=== PATIENT | female | born 1935 | race Caucasian/White ===

== ENCOUNTER → 2018-01-08 | Outpatient (CLI) | payer OTHER ==
[~2018-01-08] MED LIST: TIMO5DRO5 EACHEYE
== END | disposition home or self-care (01) ==
LOC: CFH 08:00
PROVIDERS: ATTEND Internal Medicine
DX: C50.912 Malignant neoplasm of unspecified site of left female breast (principal); N63.21 Unspecified lump in the left breast, upper outer quadrant; Z90.12 Acquired absence of left breast and nipple
CPT/HCPCS: 77065; 77066

== ENCOUNTER → 2018-01-17 | Outpatient (CLI) | payer OTHER ==
[~2018-01-17] MED LIST changes: +LIDOCAINE 1%, 20ML ONE; +LIDOCAINE 1%-EPI 1:100K, 20ML ONE; +SODIUM BICARBONATE 4.2%, 5ML ONE
== END | disposition home or self-care (01) ==
LOC: CFH 09:52
PROVIDERS: ATTEND Internal Medicine
DX: N63.21 Unspecified lump in the left breast, upper outer quadrant (principal)
CPT/HCPCS: 19083; 77065; 88305; J3490

== ENCOUNTER → 2018-01-23 | Outpatient (CLI) | payer OTHER ==
[~2018-01-23] MED LIST changes: -LIDOCAINE 1%, 20ML ONE; -LIDOCAINE 1%-EPI 1:100K, 20ML ONE; +OMNIPAQUE 350 MG/ML, 100ML BOTTLE ONE; -SODIUM BICARBONATE 4.2%, 5ML ONE
[2018-01-23 10:23] LABS: CREATININE 1.05 mg/dL (0.55-1.02)
== END | disposition home or self-care (01) ==
LOC: RAD 01-08 11:08
PROVIDERS: ATTEND Internal Medicine
DX: K86.81 Exocrine pancreatic insufficiency (principal); D18.03 Hemangioma of intra-abdominal structures; C50.912 Malignant neoplasm of unspecified site of left female breast
CPT/HCPCS: 36415; 74178; 82565; Q9967; 77065; 77066

== ENCOUNTER → 2018-02-07 | Outpatient (CLI) | payer OTHER ==
[~2018-02-07] MED LIST changes: +ASPI-496 PO; +ATOR20TA9 PO; +LEG CRAMPS PO; +LIDOCAINE 1%-EPI 1:100K, 20ML ONE; +LISI1TAB3 PO; -OMNIPAQUE 350 MG/ML, 100ML BOTTLE ONE; +SODIUM BICARBONATE 4.0%, 5ML ONE; +[UNRECOGNIZED DRUG - OTHER] PO
== END | disposition home or self-care (01) ==
LOC: CFH 09:20
PROVIDERS: ATTEND Surgery
DX: C50.412 Malignant neoplasm of upper-outer quadrant of left female breast (principal); E78.5 Hyperlipidemia, unspecified
CPT/HCPCS: 19285; 77065; J3490

== ENCOUNTER 2018-02-10 08:49 | Day surgery (SDC) | payer OTHER ==
[~2018-02-10] VITALS: Ht 167.6 cm; Wt 48.5 kg
[~2018-02-10 08:49] MED LIST changes: -ASPI-496 PO; -ATOR20TA9 PO; +BUPIVACAINE/PF-EPI 0.5% 1:200K ONE; +ISOSULFAN BLUE 10 MG/ML, 5ML IV ONE; -LEG CRAMPS PO; -LIDOCAINE 1%-EPI 1:100K, 20ML ONE; -LISI1TAB3 PO; -SODIUM BICARBONATE 4.0%, 5ML ONE; -[UNRECOGNIZED DRUG - OTHER] PO
[2018-02-10 09:37] VITALS: BP 125/66
[2018-02-10] MEDS ORDERED: LACTATED RINGERS 1,000 ML IV SCH (09:42)
[2018-02-10] MEDS ORDERED: LIDOCAINE/PRILOCAINE CRM W/TEG 5GM ONE (09:45)
[2018-02-10] MEDS ORDERED: ATOR20TA9 PO (09:45)
[2018-02-10] MEDS ORDERED: LEG CRAMPS PO (09:45)
[2018-02-10] MEDS ORDERED: [UNRECOGNIZED DRUG - OTHER] PO (09:45)
[2018-02-10] MEDS ORDERED: LISI1TAB3 PO (09:45)
[2018-02-10] MEDS ORDERED: ASPI-496 PO (09:45)
[2018-02-10] MEDS ORDERED: LIDOCAINE-MPF 1%, 2ML INFIL ONE (10:00)
[2018-02-10] MEDS ORDERED: ONDANSETRON 2MG/ML, 2ML ONE (11:38)
[2018-02-10] MEDS ORDERED: CEFAZOLIN 1,000 MG ONE (11:38)
[2018-02-10] MEDS ORDERED: KETOROLAC 30 MG/1 ML ONE (11:38)
[2018-02-10] MEDS ORDERED: DEXAMETHASONE 4 MG/ML, 1ML ONE (11:38)
[2018-02-10] MEDS ORDERED: PROPOFOL 10 MG/ML, 20ML ONE (11:38)
[2018-02-10] MEDS ORDERED: FENTANYL PF 100 MCG/2ML ONE ×2 (12:05→13:11)
[2018-02-10] MEDS ORDERED: HYDROmorphone 1 MG/ML, 1ML IV PRN (12:30)
[2018-02-10] MEDS ORDERED: OXYcodone 5 MG/5 ML ORAL.SOL UDC PO PRN (12:30)
[2018-02-10] MEDS ORDERED: FENTANYL PF 100 MCG/2ML IV PRN (12:30)
[2018-02-10] MEDS ORDERED: LABETALOL 5MG/ML, 20ML IV PRN (12:30)
[2018-02-10] MEDS ORDERED: HALOPERIDOL 5 MG/ML IV PRN (12:30)
[2018-02-10] MEDS ORDERED: LORazepam 2 MG/ML, 1ML IVPush PRN (12:30)
[2018-02-10] MEDS ORDERED: ACETAMINOPHEN 325 MG TABLET PO PRN (12:30)
[2018-02-10] MEDS ORDERED: METOPROLOL 1 MG/ML, 5ML IV PRN (12:30)
[2018-02-10] MEDS ORDERED: ALBUTEROL SULFATE 2.5 MG/3 ML NPPB PRN (12:30)
[2018-02-10] MEDS ORDERED: PROMETHAZINE 25 MG/ML, 1ML IV PRN (12:30)
[2018-02-10] MEDS ORDERED: ACETAMINOPHEN 650 MG/20.3 ML UDC ONE (12:58)
== END 2018-02-10 15:05 ==
LOC: OUT 08:49
PROVIDERS: ATTEND Surgery
DX: C50.912 Malignant neoplasm of unspecified site of left female breast (principal); R59.1 Generalized enlarged lymph nodes; Z87.39 Personal history of other diseases of the musculoskeletal system and connective tissue; Z98.51 Tubal ligation status; E89.0 Postprocedural hypothyroidism; Z72.89 Other problems related to lifestyle; Z87.891 Personal history of nicotine dependence; E78.00 Pure hypercholesterolemia, unspecified
CPT/HCPCS: 19301; 38525; 38792; 76098; 88305; 88307; 93005; A9541; C1729; J0690; J1100; J1885; J2405; J2704; J3010; J3490; J7120

== ENCOUNTER → 2018-03-07 | Outpatient (CLI) | payer OTHER ==
[~2018-03-07] MED LIST changes: +ASPI-496 PO; +ATOR20TA9 PO; -BUPIVACAINE/PF-EPI 0.5% 1:200K ONE; -ISOSULFAN BLUE 10 MG/ML, 5ML IV ONE; +LEG CRAMPS PO; +LISI1TAB3 PO; +[UNRECOGNIZED DRUG - OTHER] PO
== END | disposition home or self-care (01) ==
LOC: ROC 08:43
PROVIDERS: ATTEND Radiology Radiation Oncology
DX: C50.412 Malignant neoplasm of upper-outer quadrant of left female breast (principal); F17.200 Nicotine dependence, unspecified, uncomplicated
CPT/HCPCS: 99214; G0463

== ENCOUNTER → 2019-08-14 | Outpatient (CLI) | payer MEDICARE ==
[~2019-08-14] MED LIST changes: +ATOR20TA37 PO; -ATOR20TA9 PO; +LISI1TAB23 PO; -LISI1TAB3 PO
== END | disposition home or self-care (01) ==
LOC: EDSTATUS 06-12 14:00 → CFH 13:19
PROVIDERS: ATTEND Internal Medicine
DX: N63.20 Unspecified lump in the left breast, unspecified quadrant (principal); N64.89 Other specified disorders of breast
CPT/HCPCS: 76642; 77066; G0279